=== PATIENT | male | born 1985 | race African-American/Black ===

== ENCOUNTER 2018-09-23 00:10 | Emergency (ER) | payer OTHER ==
[2018-09-23 01:30] LABS: ABSOLUTE LYMPHOCYTES (AUTO) 1.6 10^3/uL (0.5-4.7); ABSOLUTE MONOCYTES (AUTO) 0.5 10^3/uL (0.1-1.4); ABSOLUTE NEUT (AUTO) 4.5 10^3/uL (1.7-8.2); BASOPHILS % (AUTO) 0.3 % (0-2); EOSINOPHILS % (AUTO) 0.1 % (0-6); HEMATOCRIT 44.7 % (37.9-51.0); HEMOGLOBIN 14.8 g/dL (13.5-17.0); LYMPHOCYTES % (AUTO) 23.7 % (13-45); MEAN CORPUSCULAR HEMOGLOBIN 27.4 pg (27.0-33.4); MEAN CORPUSCULAR HGB CONC 33.2 g/dL (32.0-36.0); MEAN CORPUSCULAR VOLUME 83 fl (80-97); MONOCYTES % (AUTO) 8.2 % (3-13); PLATELET COUNT 313 10^3/uL (150-450); RED BLOOD COUNT 5.41 10^6/uL (4.35-5.55); RED CELL DISTRIBUTION WIDTH 13.3 % (11.5-14.0); SEGMENTED NEUTROPHILS % (AUTO) 67.7 % (42-78); TOTAL CELLS COUNTED % (AUTO) 100 %; WHITE BLOOD COUNT 6.6 10^3/uL (4.0-10.5)
[2018-09-23 01:52] LABS: ALANINE AMINOTRANSFERASE 103 U/L (21-72); ALBUMIN 4.9 g/dL (3.5-5.0); ALKALINE PHOSPHATASE 90 U/L (38-126); ANION GAP 12 (5-19); ASPARTATE AMINO TRANSFERASE 65 U/L (17-59); BILIRUBIN,DIRECT 0.3 mg/dL (0.0-0.4); BILIRUBIN,TOTAL 0.5 mg/dL (0.2-1.3); BLOOD UREA NITROGEN 13 mg/dL (7-20); CARBON DIOXIDE 26 mmol/L (22-30); CHLORIDE 95 mmol/L (98-107); GLUCOSE 119 mg/dL (75-110); POTASSIUM 4.8 mmol/L (3.6-5.0); SODIUM 132.7 mmol/L (137-145); TOTAL PROTEIN 8.8 g/dL (6.3-8.2)
[2018-09-23 01:58] LABS: APPEARANCE,URINE CLEAR; BILIRUBIN,URINE NEGATIVE (NEGATIVE); COLOR,URINE YELLOW; GLUCOSE, URINE NEGATIVE (NEGATIVE); KETONES,URINE NEGATIVE (NEGATIVE); LEUKOCYTE ESTERASE,URINE NEGATIVE (NEGATIVE); NITRITE,URINE NEGATIVE (NEGATIVE); PROTEIN,URINE NEGATIVE (NEGATIVE); URINE SPECIFIC GRAVITY 1.016; UROBILINOGEN,URINE NEGATIVE mg/dL (<2.0)
[2018-09-23] MEDS ORDERED: AZITHROMYCIN 250 MG TABLET PO ONE (04:53)
[2018-09-23] MEDS ORDERED: CEFTRIAXONE INJ 250 MG VIAL IM ONE ×3 (04:53→05:01)
[2018-09-23] MEDS ORDERED: LIDOCAINE 1% INJ-PF (10 MG/ML) 30 ML SDV NEB ONE (04:53)
[2018-09-23] MEDS ORDERED: LIDOCAINE 1% INJ-PF (10 MG/ML) 30 ML SDV INJ ONE (04:58)
--- NOTE | 2018-09-23 05:00 | ER Document Report ---
ED GI/ - General Chief Complaint: Penile Pain Stated Complaint: ABDOMINAL PAIN Time Seen by Provider: 09/23/18 04:09 Notes: Patient is a 33-year-old male who presents to the emergency department with a chief complaint of testicle pain and swelling. Patient states that he developed the symptoms 2 days ago. Patient states that yesterday the right testicle was hard and did appear more swollen. Patient states he did have protected sex 10 d ays ago but the condom broke. He is concerned that he may have an STD. Patient states that his partner is not having any symptoms but he would like to be treated. States he is having some burning with urination. She denies abdominal pain or nausea vomiting diarrhea. She denies fevers. Patient denies difficulty urinating. Patient denies penile discharge. TRAVEL OUTSIDE OF THE [place] IN LAST 30 DAYS: No Past Medical History - General Information source: Patient - Social History Smoking Status: Never Smoker Cigarette use (# per day): No Chew tobacco use (# tins/day): No Frequency of alcohol use: Social - Reports drinking 6 pack beer per week Drug Abuse: None Lives with: Family Family History: None - Past Medical History Cardiac Medical History: Reports: None Pulmonary Medical History: Reports: None EENT Medical History: Reports: None Neurological Medical History: Reports: None Endocrine Medical History: Reports: None Renal/ Medical History: Reports: None Malignancy Medical History: Reports None GI Medical History: Reports: None Musculoskeletal Medical History: Reports None Skin Medical History: Reports None Psychiatric Medical History: Reports: None Traumatic Medical History: Reports: None Infectious Medical History: Reports: None Review of Systems - Review of Systems Constitutional: No symptoms reported EENT: No symptoms reported Cardiovascular: No symptoms reported Respiratory: No symptoms reported Gastrointestinal: No symptoms reported Genitourinary: See HPI Male Genitourinary: See HPI Musculoskeletal: No symptoms reported Skin: No symptoms reported Hematologic/Lymphatic: No symptoms reported Neurological/Psychological: No symptoms reported Physical Exam - Vital signs Vitals: Temp Pulse Resp BP Pulse Ox 98.1 F 70 18 147/95 H 99 09/23/18 00:48 09/23/18 00:48 09/23/18 00:48 09/23/18 00:48 09/23/18 00:48 Interpretation: Hypertensive - Notes Notes: GENERAL: Well-appearing, well-nourished and in no acute distress. HEAD: Atraumatic, normocephalic. EYES: Pupils equal round and reactive to light, extraocular movements intact, sclera anicteric, conjunctiva are normal. ENT: TMs normal, nares patent, oropharynx clear without exudates. Moist mucous membranes. NECK: Normal range of motion, supple without lymphadenopathy or JVD. LUNGS: Breath sounds clear to auscultation bilaterally and equal. No wheezes rales or rhonchi. HEART: Regular rate and rhythm without murmurs, rubs or gallops. ABDOMEN: Soft, nontender, normoactive bowel sounds. No guarding, no rebound. No masses appreciated. BACK: No cervical, thoracic, lumbar midline tenderness. No saddle anesthesia, n ormal distal neurovascular exam. GENITOURINARY: Penis uncircumcised, foreskin retracted to visual shaft and tip of penis. There is no obvious discharge,,edema or erythema. No lesions. Foreskin was then placed back in normal position. Assessment of the scrotum did reveal a slight enlargement of the right side of the scrotal sac. Both testes were easily palpated with no reproduced pain. Positive cremasteric reflex. Non tender epididymitis. EXTREMITIES: Normal range of motion, no pitting or edema. No clubbing or cyanosis. NEUROLOGICAL: Cranial nerves II through XII grossly intact. Normal speech, normal gait. PSYCH: Normal mood, normal affect. SKIN: Warm, Dry, normal turgor, no rashes or lesions noted. Course - Re-evaluation Re-evalutation: 09/23/18 05:03 I did perform a testicular exam with the nurse at the bedside. Patient does have right testicular swelling compared to the left testicle. Patient verifies that this is abnormal for him. Will obtain a scrotal ultrasound to rule out torsion. I did explain this to the patient. Patient would like to be treated for gonorrhea and chlamydia. Patient's liver enzymes were slightly elevated as well as a lower potassium level. I did discuss these results with Dr. Fuentes who states this did not require further treatment or management. Patient states that he has been hydrating normally does limit salt in his diet as he does have a history of high blood pressure. Patient states he only drinks a six pack of beer per week. Patient currently in no acute distress. We will continue to monitor. 09/23/18 06:19 Patient's ultrasound of the scrotum does not show testicular torsion or epididymoorchitis. A small left scrotal cyst measuring 0.2 cm. There was some mild edema to the scrotum. Patient has been appropriately covered for gonorrhea and chlamydia. I have explained the results of the testing with the patient and he is to return to the emergency department for significant swelling, fever, worsening signs or symptoms, inability to urinate, fever or any other worsening signs or symptoms. I did inform the patient that his liver enzymes are slightly elevated and his sodium level was slightly low. Patient states that he has been taking multiple doses of Tylenol per day for headaches. I did inform the patient to hold off on taking Tylenol and he may use ibuprofen instead if needed. Patient states he will incorporate some salt to his diet and will follow up with his physician for repeat lab work. - Vital Signs Vital signs: Temp Pulse Resp BP Pulse Ox 97.5 F 79 18 140/96 H 100 09/23/18 06:29 09/23/18 06:29 09/23/18 06:29 09/23/18 06:29 09/23/18 06:29 - Laboratory Result Diagrams: 09/23/18 01:10 09/23/18 01:10 Laboratory results interpreted by me: 09/23/18 01:10 Sodium 132.7 L Chloride 95 L Glucose 119 H AST 65 H ALT 103 H Total Protein 8.8 H Discharge - Discharge Clinical Impression: Penile pain, Testicle pain Condition: Stable Disposition: HOME, SELF-CARE Additional Instructions: Today you were seen in the emergency department for testicular pain and possible STD exposure. You have been appropriately treated with antibiotics that will cover gonorrhea and chlamydia. Please note that since you have been treated y our partner needs to be tested as well before engaging in sexual intercourse. We did obtain a ultrasound of the scrotum which was negative for testicular torsion or any emergent issue. Please return to the emergency department for worsening swelling to the scrotum, increasing pain, fever, inability to urinate or any other concerning signs or symptoms. Today your lab work did show a mildly low sodium level. Please incorporate sodium into your diet. Your labs also did show slight elevation in your liver enzymes. Please refrain from drinking, taking Tylenol or any other medications that is excreted through the liver or can damage the liver. Please follow-up with your primary care physician to have the labs repeated. You should call the doctor or return for re-examination if pain increases, if the scrotum becomes increasingly swollen or hard, or if you develop fever or difficulty with urination.
--- NOTE | 2018-09-23 06:08 | RADIOLOGY REPORT (SQ) ---
EXAM DESCRIPTION: US SCROTUM COMPLETED DATE/TME: 09/23/2018 04:53 CLINICAL HISTORY: 33 years, Male, scrotal pain and right testicle swelling COMPARISON: None. TECHNIQUE: Grayscale and color images of the scrotum and testicles. LIMITATIONS: None. FINDINGS: Both testicles are normal in size, shape, and echotexture. The right testicle measures 3.9 x 2.9 x 2.1 cm. The left testicle measures 4.9 x 2.9 x 2.2 cm. Both testicles demonstrate normal vascular flow. The epididymides demonstrate normal size and shape. Both epididymides demonstrate normal vascular flow. The right epididymis measures 1.2 x 1.3 x 0.8 cm. The left epididymis measures 0.9 x 1.1 x 0.8 cm. There is a left epididymal cyst which measures 0.2 cm. There is mild scrotal wall edema. IMPRESSION: No evidence of testicular torsion or epididymoorchitis. Mild scrotal wall edema. copyright 2010 [employer]- All Rights Reserved
[2018-09-23 06:31] VITALS: BP 140/96
[2018-09-23 06:42] LABS: CHLAM PCR NOT DETECTED (NOT DETECT)
== END 2018-09-23 06:31 | disposition home or self-care (01) ==
LOC: ER 00:10
DX: N48.89 Other specified disorders of penis (principal); N50.811 Right testicular pain; R30.0 Dysuria
CPT/HCPCS: 99284; 96372; 36415; 83690; 85025; 80053; 81001; 87491; 87591; 76870; 93976; J3490; J0696

== ENCOUNTER 2018-09-28 06:48 | Emergency (ER) | payer OTHER ==
--- NOTE | 2018-09-28 08:44 | ER Document Report ---
ED Skin Rash/Insect Bite/Abscs - General Chief Complaint: Skin Sore(s) Stated Complaint: SORE ON LEG Time Seen by Provider: 09/28/18 08:11 Notes: Patient is a 33-year-old male who presents to the emergency department with a chief complaint of a sore to the right upper leg. Patient states that the sore developed 2 days ago. Patient states that initially started out as a pimple that came to a head and has since popped. Patient has not noticed any obvious drainage. Patient denies severe pain but states that it is "uncomfortable." Patient states he has had multiple abscesses in the past but has never had to have them incised and drained. Patient states that normally they go away on their own with conservative measures such as warm packs. He denies fever. Patient denies joint pain. Patient denies rash. Patient denies penile dis charge. Patient denies scrotal edema or swelling. She denies recent trauma to the leg. Patient denies attempting to open the wound. Patient denies foul- smelling drainage from the wound. Patient was seen in the emergency department last week for concerns of STD exposure and right scrotal swelling. Patient states that the right scrotal swelling has since improved and does not have any complaints at this time. Patient states that his partner has not had any symptoms and has not been checked for STIs. Patient states he has had abscesses to his inner thigh and groin previously. TRAVEL OUTSIDE OF THE [place] IN LAST 30 DAYS: No - Related Data Allergies/Adverse Reactions: No Known Allergies Allergy (Unverified 09/28/18 06:52) Past Medical History - General Information source: Patient - Social History Smoking Status: Unknown if Ever Smoked Cigarette use (# per day): No Chew tobacco use (# tins/day): No Frequency of alcohol use: Social Drug Abuse: None Lives with: Alone Family History: None Patient has suicidal ideation: No Patient has homicidal ideation: No - Past Medical History Cardiac Medical History: Reports: Hx Hypertension - Hx. of, no medications Pulmonary Medical History: Reports: None EENT Medical History: Reports: None Neurological Medical History: Reports: None Endocrine Medical History: Reports: None Renal/ Medical History: Reports: None. Denies: Hx Peritoneal Dialysis Malignancy Medical History: Reports None GI Medical History: Reports: None Musculoskeletal Medical History: Reports None Skin Medical History: Reports None Psychiatric Medical History: Reports: None Traumatic Medical History: Reports: None Infectious Medical History: Reports: None Past Surgical History: Reports: None Review of Systems - Review of Systems Constitutional: No symptoms reported EENT: No symptoms reported Cardiovascular: No symptoms reported Gastrointestinal: No symptoms reported Genitourinary: No symptoms reported Male Genitourinary: No symptoms reported Musculoskeletal: No symptoms reported Skin: See HPI Hematologic/Lymphatic: No symptoms reported Neurological/Psychological: No symptoms reported Physical Exam - Vital signs Vitals: Temp Pulse Resp BP Pulse Ox 97.3 F 111 H 16 139/95 H 98 09/28/18 06:51 09/28/18 06:51 09/28/18 06:51 09/28/18 06:51 09/28/18 06:51 Interpretation: Tachycardic - Notes Notes: GENERAL: Well-appearing, well-nourished and in no acute distress. HEAD: Atraumatic, normocephalic. EYES: Pupils equal round and reactive to light, extraocular movements intact, sclera anicteric, conjunctiva are normal. ENT: TMs normal, nares patent, oropharynx clear without exudates. Moist mucous membranes. NECK: Normal range of motion, supple without lymphadenopathy or JVD. LUNGS: Breath sounds clear to auscultation bilaterally and equal. No wheezes rales or rhonchi. HEART: Regular rate and rhythm without murmurs, rubs or gallops. ABDOMEN: Soft, nontender, normoactive bowel sounds. No guarding, no rebound. No masses appreciated. BACK: No cervical, thoracic, lumbar midline tenderness. No saddle anesthesia, normal distal neurovascular exam. GENITOURINARY: Deferred. EXTREMITIES: Normal range of motion, no pitting or edema. No clubbing or cyanosis. No rash to palms of hands. NEUROLOGICAL: Cranial nerves II through XII grossly intact. Normal speech, normal gait. PSYCH: Normal mood, normal affect. SKIN: Warm, Dry, normal turgor, 0.5 cm lesion noted to the right upper medial thigh, small amount of clear drainage. Area is not indurated but slightly firm, no surrounding cellulitis. Course - Re-evaluation Re-evalutation: 09/28/18 08:49 She does have a sore to the right inner thigh with a clear drainage. States this started out as a pimple and has since opened. Patient is concerned for possible abscess or STI. Will place patient on Keflex and have instructed the patient to use ibuprofen and warm compresses to the site to aid in drainage. States that he has googled his symptoms online is concerned for syphilis. Patient does not know if he has been exposed. Patient states last week he was seen the emergency department and treated for gonorrhea chlamydia in which his cultures did come back negative. Patient states that his partner has not had any complaints or symptoms. Patient states he does have a history of abscesses that do improve with conservative measures. - Vital Signs Vital signs: Temp Pulse Resp BP Pulse Ox 97.3 F 111 H 16 139/95 H 98 09/28/18 06:51 09/28/18 06:51 09/28/18 06:51 09/28/18 06:51 09/28/18 06:51 Discharge - Discharge Clinical Impression: Skin lesion Condition: Stable Disposition: HOME, SELF-CARE Additional Instructions: Today you were seen in the emergency department for a right inner thigh wound. Does appear that this could be a developing abscess. Please continue to use warm compresses as well as taking the antibiotic Keflex. Please return to the emergency department for worsening signs or symptoms to include an increasing area of pain, surrounding redness, fever or enlargement of the area. Today you were tested for syphilis. You will be called if this is positive so he can be treated appropriately. Please follow-up with your primary care physician for follow-up. Abscess You have an abscess (boil). This a pus-forming infection, usually due to staph. Some boils may be left to drain on their own, but most require lancing. From the time the tender lump first appears, it may be three or four days before the abscess is ready to jarrett. Local heat and rest help at this stage of treatment. An antibiotic may prevent spread of the infection. Once the abscess is opened, packing may be placed into it. This is done so pus is not sealed inside by premature closure of the cavity. The packing will be removed at your follow-up visit or you may be advised to remove it yourself at home. Sometimes this packing must be replaced a few times during healing. The wound will heal with surprisingly little scar. Depending on the size and location of an abscess, healing can take one to four weeks. You may shower and wash the area around the incision site two or three times a day. Antibiotics may be prescribed, but are usually not necessary after an abscess has been drained. If you develop fever, chilling, worsening pain, or increasing swelling in the area, call the doctor or return immediately. Prescriptions: Cephalexin Monohydrate [Keflex 500 mg Capsule] 500 mg PO QID 7 Days capsule
[2018-09-28] MEDS ORDERED: CEPHALEXIN 500 MG CAPSULE PO ONE (08:52)
[2018-09-28 09:12] VITALS: BP 137/84
== END 2018-09-28 09:28 | disposition home or self-care (01) ==
LOC: ER 06:48
DX: L98.9 Disorder of the skin and subcutaneous tissue, unspecified (principal); I10 Essential (primary) hypertension
CPT/HCPCS: 36415; 86592; 99283

== ENCOUNTER 2018-10-14 05:25 | Emergency (ER) | payer OTHER ==
[2018-10-14 05:46] VITALS: BP 166/80
[2018-10-14 06:54] LABS: APPEARANCE,URINE CLEAR; BILIRUBIN,URINE NEGATIVE (NEGATIVE); COLOR,URINE YELLOW; GLUCOSE, URINE NEGATIVE (NEGATIVE); KETONES,URINE NEGATIVE (NEGATIVE); LEUKOCYTE ESTERASE,URINE NEGATIVE (NEGATIVE); NITRITE,URINE NEGATIVE (NEGATIVE); PROTEIN,URINE NEGATIVE (NEGATIVE); URINE SPECIFIC GRAVITY 1.017; UROBILINOGEN,URINE NEGATIVE mg/dL (<2.0)
--- NOTE | 2018-10-14 07:11 | ER Document Report ---
ED General - General Chief Complaint: Testicular Pain Stated Complaint: PAIN IN TESTICLES Time Seen by Provider: 10/14/18 06:08 TRAVEL OUTSIDE OF THE [place] IN LAST 30 DAYS: No - HPI Notes: Patient is a 33-year-old male who presents to the emergency department for evaluation of bilateral testicular pain. He states that the pain is worse on the left than the right. Started 48 hours ago. He had similar pain a few weeks ago. He was seen here, sent home with antibiotics. He admits he did not take all of them. He states that seemed to get better and then worsened again. He denies any penile discharge, dysuria, hematuria. Denies any lesions or sores in the area. He is currently sexually active, not in a monogamous relationship. - Related Data Allergies/Adverse Reactions: No Known Allergies Allergy (Unverified 09/28/18 06:52) Home Medications: Tylenol prn Past Medical History - General Information source: Patient - Social History Smoking Status: Never Smoker Frequency of alcohol use: None Drug Abuse: None Family History: None Patient has suicidal ideation: No Patient has homicidal ideation: No - Past Medical History Cardiac Medical History: Reports: Hx Hypertension - Hx. of, no medications Renal/ Medical History: Denies: Hx Peritoneal Dialysis Review of Systems - Review of Systems Constitutional: No symptoms reported EENT: No symptoms reported Cardiovascular: No symptoms reported Respiratory: No symptoms reported Gastrointestinal: No symptoms reported Genitourinary: No symptoms reported Male Genitourinary: See HPI Skin: No symptoms reported Neurological/Psychological: No symptoms reported Physical Exam - Vital signs Vitals: Temp Pulse Resp BP Pulse Ox 98.1 F 92 14 166/80 H 100 10/14/18 05:45 10/14/18 05:45 10/14/18 05:45 10/14/18 05:45 10/14/18 05:45 - Notes Notes: Vital signs reviewed, please refer to chart. Head is normocephalic, atraumatic. Pupils equal round, reactive to light. Neck is supple without meningismus. Heart is regular rate and rhythm. Lungs are clear to auscultation bilaterally. Abdomen is soft, nontender, normoactive bowel sounds throughout. Testicular exam is performed. 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 Bilateral testicles are descended. He has no significant tenderness. Normal lie. Intact cremasteric reflex. No visible lesions, erythema, induration. No regional adenopathy. Extremities without cyanosis, clubbing. Posterior calves are nontender. Peripheral pulses are equal. Skin is warm and dry. Patient is awake, alert, neurological exam is nonfocal. Course - Re-evaluation Re-evalutation: 10/14/18 07:10 Patient presents emergency department for evaluation of bilateral testicular pain. He really does not have any focal findings on exam. His urinalysis is unremarkable. Awaiting results of ultrasound. I explained to the patient that antibiotics are only efficacious if there taken as directed until they are gone. He voiced understanding to this. 10/14/18 08:10 Patient's ultrasound was found to be unremarkable. He has, however, had similar symptoms with epididymitis in the past. He is having unprotected sex. I explained to him that he should be using condoms regularly. I also explained to him that epididymitis can be caused by sexually transmitted infections. I will go ahead and treat him again with Rocephin, sent home with prescription for doxycycline. He is told in no uncertain terms that he needs to finish the antibiotic course as prescribed. He voiced understanding to this. I also notified him that his ultrasound was unremarkable but I was treating him empirically given his symptoms. He voiced understanding to this as well. He is to follow-up with primary care, return to the emergency department with worsening or new concerning symptoms of any sort. - Vital Signs Vital signs: Temp Pulse Resp BP Pulse Ox 98.1 F 92 14 166/80 H 100 10/14/18 05:45 10/14/18 05:45 10/14/18 05:45 10/14/18 05:45 10/14/18 05:45 - Diagnostic Test Radiology reviewed: Reports reviewed Radiology results interpreted by me: 10/14/18 08:11 Scrotum Ultrasound 10/14/18 06:18 IMPRESSION: 1. Normal sonographic evaluation of the testicles. There is no evidence of testicular torsion or epididymoorchitis. 2. Small right epididymal head cyst. 3. Mild bilateral scrotal wall thickening. Discharge - Discharge Clinical Impression: Epididymitis with no abscess Condition: Stable Disposition: HOME, SELF-CARE Instructions: Epididymitis ([facility]), Doxycycline ([facility]) Additional Instructions: It is important that you take all the antibiotics as prescribed until gone. Safe sex practices. Follow-up with your doctor next week. Return to the emergency department with worsening or new concerning symptoms.
--- NOTE | 2018-10-14 07:21 | RADIOLOGY REPORT (SQ) ---
EXAM: US SCROTUM CLINICAL DATA: 33-year-old male with scrotal pain TECHNICAL DATA: Sagittal and transverse ultrasound imaging and measurement of bilateral testicles with color and spectral Doppler flow was performed. Comparison: 09/23/2018. FINDINGS: The right testicle measures 4.0 x 3.0 x 2.0 cm and is homogeneous in echogenicity. No focal masses are identified. The right epididymal head measures 0.8 x 0.7 x 0.8 cm. There is a small 0.4 x 0.3 x 0.2 cm right epididymal cyst. Doppler imaging demonstrates normal pulsed and color Doppler flow . The left testicle measures 4.7 x 2.7 x 2.1 cm and is homogeneous in echogenicity. The left epididymal head measures 0.7 x 0.6 x 0.6 cm. Doppler imaging demonstrates normal flow in the left testicle. There is no evidence of a varicocele or definite hydrocele. There is mild bilateral scrotal wall thickening. IMPRESSION: 1. Normal sonographic evaluation of the testicles. There is no evidence of testicular torsion or epididymoorchitis. 2. Small right epididymal head cyst. 3. Mild bilateral scrotal wall thickening.
[2018-10-14] MEDS ORDERED: CEFTRIAXONE INJ 250 MG VIAL IM ONE (08:10)
== END 2018-10-14 09:27 | disposition home or self-care (01) ==
LOC: ER 05:25
DX: N45.1 Epididymitis (principal); N50.812 Left testicular pain; N50.811 Right testicular pain
CPT/HCPCS: 99284; 96372; 81001; 76870; 93976; J0696

== ENCOUNTER 2018-11-03 07:24 | Emergency (ER) | payer OTHER ==
[2018-11-03] MEDS ORDERED: HYDROCODONE/ACETAMINOPHEN 5-325 MG TABLET PO ONE (09:00)
[2018-11-03 09:03] LABS: APPEARANCE,URINE SLIGHTLY-CLOUDY; BILIRUBIN,URINE NEGATIVE (NEGATIVE); COLOR,URINE YELLOW; GLUCOSE, URINE NEGATIVE (NEGATIVE); KETONES,URINE NEGATIVE (NEGATIVE); LEUKOCYTE ESTERASE,URINE NEGATIVE (NEGATIVE); NITRITE,URINE NEGATIVE (NEGATIVE); PROTEIN,URINE NEGATIVE (NEGATIVE); URINE SPECIFIC GRAVITY 1.011; UROBILINOGEN,URINE NEGATIVE mg/dL (<2.0)
[2018-11-03 09:07] LABS: ABSOLUTE MONOCYTES (AUTO) 0.5 10^3/uL (0.1-1.4); ABSOLUTE NEUT (AUTO) 3.9 10^3/uL (1.7-8.2); BASOPHILS % (AUTO) 0.5 % (0-2); EOSINOPHILS % (AUTO) 0.6 % (0-6); HEMATOCRIT 45.7 % (37.9-51.0); HEMOGLOBIN 15.3 g/dL (13.5-17.0); LYMPHOCYTES % (AUTO) 17.3 % (13-45); MEAN CORPUSCULAR HEMOGLOBIN 27.4 pg (27.0-33.4); MEAN CORPUSCULAR HGB CONC 33.6 g/dL (32.0-36.0); MEAN CORPUSCULAR VOLUME 82 fl (80-97); MONOCYTES % (AUTO) 9.6 % (3-13); PLATELET COUNT 339 10^3/uL (150-450); RED BLOOD COUNT 5.59 10^6/uL (4.35-5.55); RED CELL DISTRIBUTION WIDTH 12.7 % (11.5-14.0); TOTAL CELLS COUNTED % (AUTO) 100 %; WHITE BLOOD COUNT 5.5 10^3/uL (4.0-10.5)
[2018-11-03 09:19] LABS: ALBUMIN 5.1 g/dL (3.5-5.0); ALKALINE PHOSPHATASE 82 U/L (38-126); ANION GAP 13 (5-19); ASPARTATE AMINO TRANSFERASE 33 U/L (17-59); BILIRUBIN,DIRECT 0.3 mg/dL (0.0-0.4); BILIRUBIN,TOTAL 1.1 mg/dL (0.2-1.3); BLOOD UREA NITROGEN 8 mg/dL (7-20); CALCIUM 10.2 mg/dL (8.4-10.2); CARBON DIOXIDE 24 mmol/L (22-30); CHLORIDE 87 mmol/L (98-107); POTASSIUM 4.8 mmol/L (3.6-5.0); TOTAL PROTEIN 8.8 g/dL (6.3-8.2)
--- NOTE | 2018-11-03 09:28 | ER Document Report ---
ED GI/ - General Chief Complaint: Abdominal Pain Stated Complaint: ABDOMINAL PAIN Time Seen by Provider: 11/03/18 08:10 Primary Care Provider: RAGINI SALVADOR MD [NO LOCAL MD] - Follow up as needed Mode of Arrival: Ambulatory Information source: Patient Notes: Patient is an otherwise healthy 33-year-old male presents emergency department chief complaint of low abdominal cramping and generalized scrotal pain. He was seen in the emergency department for this recently and diagnosed with a scrotal cyst. Patient denies any fever, nausea, vomiting or urinary symptoms. He reports that he was given some pain medication at that time which relieved the pain however the pain has returned and wanted to be sure it was nothing worse. TRAVEL OUTSIDE OF THE [place] IN LAST 30 DAYS: No - Related Data Allergies/Adverse Reactions: No Known Allergies Allergy (Verified 11/03/18 07:33) Past Medical History - General Information source: Patient - Social History Smoking Status: Never Smoker Chew tobacco use (# tins/day): No Drug Abuse: None Family History: None Patient has suicidal ideation: No Patient has homicidal ideation: No - Past Medical History Cardiac Medical History: Reports: Hx Hypertension - Hx. of, no medications Renal/ Medical History: Denies: Hx Peritoneal Dialysis Review of Systems - Review of Systems Constitutional: No symptoms reported EENT: No symptoms reported Cardiovascular: No symptoms reported Respiratory: No symptoms reported Gastrointestinal: Abdominal pain Genitourinary: No symptoms reported Male Genitourinary: See HPI Musculoskeletal: No symptoms reported Skin: No symptoms reported Hematologic/Lymphatic: No symptoms reported Neurological/Psychological: No symptoms reported Physical Exam - Vital signs Vitals: Temp Pulse Resp BP Pulse Ox 98.4 F 93 16 150/87 H 100 11/03/18 07:34 11/03/18 07:34 11/03/18 07:34 11/03/18 07:34 11/03/18 07:34 - Notes Notes: PHYSICAL EXAMINATION: GENERAL: Well-appearing, well-nourished and in no acute distress. HEAD: Atraumatic, normocephalic. EYES: Pupils equal round and reactive to light, extraocular movements intact, sclera anicteric, conjunctiva are normal. ENT: Nares patent, oropharynx clear without exudates. Moist mucous membranes. NECK: Normal range of motion, supple without lymphadenopathy LUNGS: Breath sounds clear to auscultation bilaterally and equal. No wheezes r ales or rhonchi. HEART: Regular rate and rhythm without murmurs ABDOMEN: Soft, nontender, nondistended abdomen. No guarding, no rebound. No masses appreciated. Musculoskeletal: Normal range of motion, no pitting or edema. No cyanosis. Genitourinary: No scrotal swelling or edema noted, positive cremasteric reflex. Testicles symmetrical. NEUROLOGICAL: Cranial nerves grossly intact. Normal speech, normal gait. Normal sensory, motor exams PSYCH: Normal mood, normal affect. SKIN: Warm, Dry, normal turgor, no rashes or lesions noted. Course - Re-evaluation Re-evalutation: Patient appears well, nontoxic and vital signs are within normal limits. He is not in any acute distress. Labs as recorded below. Patient will be discharged home in stable condition at this time. Laboratory 11/03/18 11/03/18 11/03/18 08:40 08:40 08:40 WBC 5.5 RBC 5.59 H Hgb 15.3 Hct 45.7 MCV 82 MCH 27.4 MCHC 33.6 RDW 12.7 Plt Count 339 Seg Neutrophils % 72.0 Lymphocytes % 17.3 Monocytes % 9.6 Eosinophils % 0.6 Basophils % 0.5 Absolute Neutrophils 3.9 Absolute Lymphocytes 1.0 Absolute Monocytes 0.5 Absolute Eosinophils 0.0 Absolute Basophils 0.0 Sodium 124.0 L Potassium 4.8 Chloride 87 L Carbon Dioxide 24 Anion Gap 13 BUN 8 Creatinine 0.92 Est GFR ( Amer) > 60 Est GFR (Non-Af Amer) > 60 Glucose 55 L POC Glucose Calcium 10.2 Total Bilirubin 1.1 Direct Bilirubin 0.3 Neonat Total Bilirubin Not Reportable Neonat Direct Bilirubin Not Reportable Neonat Indirect Bili Not Reportable AST 33 ALT 41 Alkaline Phosphatase 82 Total Protein 8.8 H Albumin 5.1 H Lipase 51.6 Urine Color YELLOW Urine Appearance SLIGHTLY-CLOUDY Urine pH 9.0 Ur Specific [place] 1.011 Urine Protein NEGATIVE Urine Glucose (UA) NEGATIVE Urine Ketones NEGATIVE Urine Blood SMALL H Urine Nitrite NEGATIVE Urine Bilirubin NEGATIVE Urine Urobilinogen NEGATIVE Ur Leukocyte Esterase NEGATIVE Urine WBC (Auto) 0 Urine RBC (Auto) 31 Urine Bacteria (Auto) TRACE Squamous Epi Cells Auto <1 Urine Mucus (Auto) RARE Urine Ascorbic Acid NEGATIVE Chlamydia DNA (PCR) N.gonorrhoeae DNA (PCR) 11/03/18 11/03/18 08:40 10:08 WBC RBC Hgb Hct MCV MCH MCHC RDW Plt Count Seg Neutrophils % Lymphocytes % Monocytes % Eosinophils % Basophils % Absolute Neutrophils Absolute Lymphocytes Absolute Monocytes Absolute Eosinophils Absolute Basophils Sodium Potassium Chloride Carbon Dioxide Anion Gap BUN Creatinine Est GFR ( Amer) Est GFR (Non-Af Amer) Glucose POC Glucose 94 Calcium Total Bilirubin Direct Bilirubin Neonat Total Bilirubin Neonat Direct Bilirubin Neonat Indirect Bili AST ALT Alkaline Phosphatase Total Protein Albumin Lipase Urine Color Urine Appearance Urine pH Ur Specific [place] Urine Protein Urine Glucose (UA) Urine Ketones Urine Blood Urine Nitrite Urine Bilirubin Urine Urobilinogen Ur Leukocyte Esterase Urine WBC (Auto) Urine RBC (Auto) Urine Bacteria (Auto) Squamous Epi Cells Auto Urine Mucus (Auto) Urine Ascorbic Acid Chlamydia DNA (PCR) NOT DETECTED N.gonorrhoeae DNA (PCR) NOT DETECTED - Vital Signs Vital signs: Temp Pulse Resp BP Pulse Ox 98.3 F 71 18 137/88 H 100 11/03/18 11:17 11/03/18 11:17 11/03/18 11:17 11/03/18 11:17 11/03/18 11:17 - Laboratory Result Diagrams: 11/03/18 08:40 11/03/18 08:40 Laboratory results interpreted by me: 11/03/18 11/03/18 11/03/18 08:40 08:40 08:40 RBC 5.59 H Sodium 124.0 L Chloride 87 L Glucose 55 L Total Protein 8.8 H Albumin 5.1 H Urine Blood SMALL H Discharge - Discharge Clinical Impression: Scrotal pain Condition: Stable Disposition: HOME, SELF-CARE Additional Instructions: Scrotal Pain The pain to your scrotum doesn't appear to be serious. The most recent u ltrasound did show a small cyst on the right testicle. Please take ibuprofen 600 mg every 6 hours. You should call the doctor or return for re-examination if pain increases, if the scrotum becomes increasingly swollen or hard, or if you develop fever or difficulty with urination. Referrals: RAGINI SALVADOR MD [NO LOCAL MD] - Follow up as needed
[2018-11-03 09:31] LABS: GLUCOSE 55 mg/dL (75-110)
[2018-11-03 10:26] LABS: CHLAM PCR NOT DETECTED (NOT DETECT)
[2018-11-03 11:20] VITALS: BP 137/88
== END 2018-11-03 11:21 | disposition home or self-care (01) ==
LOC: ER 07:24
DX: R10.30 Lower abdominal pain, unspecified (principal); N50.82 Scrotal pain; I10 Essential (primary) hypertension
CPT/HCPCS: 36415; 80053; 81001; 82962; 83690; 85025; 87491; 87591; 99284

== ENCOUNTER 2018-12-08 06:54 | Emergency (ER) | payer OTHER ==
[2018-12-08] MEDS ORDERED: TRAMADOL HCL 50 MG TABLET PO ONE (07:24)
[2018-12-08 08:10] LABS: AMORPHOUS SEDIMENT,URINE TRACE /HPF; APPEARANCE,URINE CLOUDY; BILIRUBIN,URINE NEGATIVE (NEGATIVE); COLOR,URINE YELLOW; GLUCOSE, URINE NEGATIVE (NEGATIVE); KETONES,URINE NEGATIVE (NEGATIVE); LEUKOCYTE ESTERASE,URINE NEGATIVE (NEGATIVE); NITRITE,URINE NEGATIVE (NEGATIVE); PROTEIN,URINE NEGATIVE (NEGATIVE); URINE SPECIFIC GRAVITY 1.017; UROBILINOGEN,URINE NEGATIVE mg/dL (<2.0)
--- NOTE | 2018-12-08 08:24 | ER Document Report ---
ED General - General Chief Complaint: Groin Pain Stated Complaint: GROIN PAIN Time Seen by Provider: 12/08/18 07:15 Mode of Arrival: Ambulatory Information source: Patient TRAVEL OUTSIDE OF THE [place] IN LAST 30 DAYS: No - HPI Notes: Patient presents with complaints of bilateral scrotal pain. He states it is worse on the right. He states it is intermittent. Nothing makes it better or worse. It is a crampy sensation located at the top of each testicle. He states this is the third visit for this pain. He has had a normal ultrasound in the past as well as he has been treated for cyclic transmitted diseases on recent visits. He states he has no pus or discharge from his penis. No other lesions. No abdominal pain. The pain radiates one side of the testicle to the other. - Related Data Allergies/Adverse Reactions: No Known Allergies Allergy (Verified 11/03/18 07:33) Past Medical History - General Information source: Patient - Social History Smoking Status: Never Smoker Frequency of alcohol use: None Drug Abuse: None Family History: None Patient has suicidal ideation: No Patient has homicidal ideation: No - Past Medical History Cardiac Medical History: Reports: Hx Hypertension - Hx. of, no medications Renal/ Medical History: Denies: Hx Peritoneal Dialysis Past Surgical History: Reports: Hx Orthopedic Surgery - foot Review of Systems - Review of Systems Constitutional: denies: Chills, Fever Cardiovascular: denies: Chest pain, Palpitations Respiratory: denies: Cough, Short of breath -: Yes All other systems reviewed and negative Physical Exam - Vital signs Vitals: Temp Pulse Resp BP Pulse Ox 97.5 F 108 H 18 157/89 H 100 12/08/18 06:58 12/08/18 06:58 12/08/18 06:58 12/08/18 06:58 12/08/18 06:58 Interpretation: Hypertensive - General General appearance: Appears well, Alert - HEENT Head: Normocephalic, Atraumatic Eyes: Normal Pupils: PERRL - Respiratory Respiratory status: No respiratory distress Chest status: Nontender Breath sounds: Normal Chest palpation: Normal - Cardiovascular Rhythm: Regular, Other - Heart rate was 108 per nursing notes but was 82 for me. Heart sounds: Normal auscultation Murmur: No - Abdominal Inspection: Normal Distension: No distension Bowel sounds: Normal Tenderness: Nontender Organomegaly: No organomegaly - Genitourinary Inspection: Normal Tenderness: Epididymis tender, Other - Patient has some minimal tenderness to the epididymis bilaterally. Not as significant as a usual epididymitis. He has no masses. Testicles are otherwise unremarkable. Scrotum: Normal - Back Back: Normal, Nontender - Extremities General upper extremity: Normal inspection, Nontender, Normal color, Normal ROM, Normal temperature General lower extremity: Normal inspection, Nontender, Normal color, Normal ROM, Normal temperature, Normal weight bearing. No: Saundra's sign - Neurological Neuro grossly intact: Yes Cognition: Normal Orientation: AAOx4 [place] Coma Scale Eye Opening: Spontaneous [place] Coma Scale Verbal: Oriented [place] Coma Scale Motor: Obeys Commands [place] Coma Scale Total: 15 Speech: Normal Motor strength normal: LUE, RUE, LLE, RLE Sensory: Normal - Psychological Associated symptoms: Normal affect, Normal mood - Skin Skin Temperature: Warm Skin Moisture: Dry Skin Color: Normal Course - Re-evaluation Re-evalutation: 12/08/18 08:24 Patient presents with tenderness at the top of each testicle. Slightly greater on the right it does not appear to be consistent with epididymitis. No masses are appreciated. The scrotum and testicles are otherwise unremarkable. He has had a recent negative testicular ultrasound. Repeating his urinalysis shows no evidence of infection. I think patient will best be served by following up with a urologist which she has not yet seen. - Vital Signs Vital signs: Temp Pulse Resp BP Pulse Ox 97.5 F 108 H 18 157/89 H 100 12/08/18 06:58 12/08/18 06:58 12/08/18 06:58 12/08/18 06:58 12/08/18 06:58 - Laboratory Laboratory results interpreted by me: 12/08/18 08:25 Laboratory 12/08/18 07:50 Urine Color YELLOW Urine Appearance CLOUDY Urine pH 7.0 Ur Specific [place] 1.017 Urine Protein NEGATIVE Urine Glucose (UA) NEGATIVE Urine Ketones NEGATIVE Urine Blood NEGATIVE Urine Nitrite NEGATIVE Urine Bilirubin NEGATIVE Urine Urobilinogen NEGATIVE Ur Leukocyte Esterase NEGATIVE Urine WBC (Auto) 1 Urine RBC (Auto) 1 Squamous Epi Cells Auto <1 Amorphous Sediment Auto TRACE Urine Mucus (Auto) RARE Urine Ascorbic Acid NEGATIVE Discharge - Discharge Clinical Impression: Testicle pain Condition: Stable Disposition: HOME, SELF-CARE Instructions: Testicular Pain ([facility]) Additional Instructions: Please call a urologist as soon as possible to arrange follow-up Prescriptions: Tramadol HCl [Ultram] 50 mg PO Q6 PRN 3 Days #12 tablet PRN Reason: Referrals: ANNA CHERRY MD [NO LOCAL MD] - Follow up in 3-5 days
[2018-12-08 08:39] VITALS: BP 144/87
== END 2018-12-08 08:41 | disposition home or self-care (01) ==
LOC: ER 06:54
DX: N50.812 Left testicular pain (principal); N50.811 Right testicular pain; N50.82 Scrotal pain; R10.30 Lower abdominal pain, unspecified
CPT/HCPCS: 81001; 99284